=== PATIENT | female | born 1935 | race Caucasian/White ===

== ENCOUNTER → 2019-07-20 09:51 | Outpatient (CLI) | payer MEDICARE, OTHER, SELFPAY | PROVIDERS: Family Provider Internal Medicine; PCP Family Medicine; Referring Provider Family Medicine; Visit Provider Family Medicine | DX: S21.101A Unspecified open wound of right front wall of thorax without penetration into thoracic cavity, initial encounter (principal); S21.201A Unspecified open wound of right back wall of thorax without penetration into thoracic cavity, initial encounter; L08.9 Local infection of the skin and subcutaneous tissue, unspecified | CPT/HCPCS: 87070; 87075; 87205; 97597; 99214 ==

== ENCOUNTER → 2019-07-22 11:55 | Outpatient (CLI) | payer MEDICARE, OTHER, SELFPAY | PROVIDERS: Family Provider Internal Medicine; PCP Family Medicine; Referring Provider Orthopaedic Surgery; Visit Provider Family Medicine | DX: S31.000A Unspecified open wound of lower back and pelvis without penetration into retroperitoneum, initial encounter (principal); S21.301A Unspecified open wound of right front wall of thorax with penetration into thoracic cavity, initial encounter | CPT/HCPCS: 99214 ==

== ENCOUNTER → 2019-07-24 08:32 | Outpatient (CLI) | payer MEDICARE, OTHER, SELFPAY | PROVIDERS: Family Provider Internal Medicine; PCP Family Medicine; Visit Provider Family Medicine | DX: S31.000A Unspecified open wound of lower back and pelvis without penetration into retroperitoneum, initial encounter (principal); S21.90XA Unspecified open wound of unspecified part of thorax, initial encounter | CPT/HCPCS: 97605 ==

== ENCOUNTER → 2019-07-27 10:35 | Outpatient (CLI) | payer MEDICARE, OTHER, SELFPAY | PROVIDERS: Family Provider Internal Medicine; PCP Family Medicine; Referring Provider Family Medicine; Visit Provider Family Medicine | DX: S21.101A Unspecified open wound of right front wall of thorax without penetration into thoracic cavity, initial encounter (principal); I10 Essential (primary) hypertension | CPT/HCPCS: 97597 ==

== ENCOUNTER → 2019-07-29 12:45 | Outpatient (CLI) | payer MEDICARE, OTHER, SELFPAY | PROVIDERS: Family Provider Internal Medicine; PCP Family Medicine; Referring Provider Family Medicine; Visit Provider Family Medicine | DX: S31.000A Unspecified open wound of lower back and pelvis without penetration into retroperitoneum, initial encounter (principal); S21.301A Unspecified open wound of right front wall of thorax with penetration into thoracic cavity, initial encounter | CPT/HCPCS: 99214 ==

== ENCOUNTER → 2019-07-31 10:33 | Outpatient (CLI) | payer MEDICARE, OTHER, SELFPAY | PROVIDERS: Family Provider Internal Medicine; PCP Family Medicine; Referring Provider Family Medicine; Visit Provider Family Medicine | DX: S31.000A Unspecified open wound of lower back and pelvis without penetration into retroperitoneum, initial encounter (principal); S21.301A Unspecified open wound of right front wall of thorax with penetration into thoracic cavity, initial encounter | CPT/HCPCS: 99214 ==

== ENCOUNTER → 2019-08-03 11:07 | Outpatient (CLI) | payer MEDICARE, OTHER, SELFPAY | PROVIDERS: Family Provider Internal Medicine; PCP Family Medicine; Visit Provider Family Medicine | DX: S31.000A Unspecified open wound of lower back and pelvis without penetration into retroperitoneum, initial encounter (principal); S21.301A Unspecified open wound of right front wall of thorax with penetration into thoracic cavity, initial encounter | CPT/HCPCS: 99213 ==

== ENCOUNTER → 2019-08-05 10:58 | Outpatient (CLI) | payer MEDICARE, OTHER, SELFPAY | PROVIDERS: Family Provider Internal Medicine; PCP Family Medicine; Visit Provider Family Medicine | DX: S21.101A Unspecified open wound of right front wall of thorax without penetration into thoracic cavity, initial encounter (principal); S21.201A Unspecified open wound of right back wall of thorax without penetration into thoracic cavity, initial encounter | CPT/HCPCS: 99213; 99214 ==

== ENCOUNTER → 2019-08-07 10:18 | Outpatient (CLI) | payer MEDICARE, OTHER, SELFPAY | PROVIDERS: Family Provider Internal Medicine; PCP Family Medicine; Visit Provider Family Medicine | DX: S31.000A Unspecified open wound of lower back and pelvis without penetration into retroperitoneum, initial encounter (principal); S21.301A Unspecified open wound of right front wall of thorax with penetration into thoracic cavity, initial encounter | CPT/HCPCS: 99213 ==

== ENCOUNTER → 2019-08-10 13:58 | Outpatient (CLI) | payer MEDICARE, OTHER, SELFPAY | PROVIDERS: Family Provider Internal Medicine; PCP Family Medicine; Visit Provider Family Medicine | DX: S21.101A Unspecified open wound of right front wall of thorax without penetration into thoracic cavity, initial encounter (principal); S21.201A Unspecified open wound of right back wall of thorax without penetration into thoracic cavity, initial encounter | CPT/HCPCS: 99213 ==

== ENCOUNTER → 2019-08-13 09:57 | Outpatient (CLI) | payer MEDICARE, OTHER, SELFPAY | PROVIDERS: Family Provider Internal Medicine; PCP Family Medicine; Referring Provider Family Medicine; Visit Provider Family Medicine | DX: S31.000A Unspecified open wound of lower back and pelvis without penetration into retroperitoneum, initial encounter (principal); S21.301A Unspecified open wound of right front wall of thorax with penetration into thoracic cavity, initial encounter | CPT/HCPCS: 99212 ==

== ENCOUNTER → 2019-08-17 09:53 | Outpatient (CLI) | payer MEDICARE, OTHER, SELFPAY | PROVIDERS: Family Provider Internal Medicine; PCP Family Medicine; Referring Provider Family Medicine; Visit Provider Family Medicine | DX: S31.000A Unspecified open wound of lower back and pelvis without penetration into retroperitoneum, initial encounter (principal); S21.301A Unspecified open wound of right front wall of thorax with penetration into thoracic cavity, initial encounter | CPT/HCPCS: 99213 ==

== ENCOUNTER → 2019-08-20 09:30 | Outpatient (CLI) | payer MEDICARE, OTHER, SELFPAY | PROVIDERS: Family Provider Internal Medicine; PCP Family Medicine; Referring Provider Family Medicine; Visit Provider Family Medicine | DX: S31.000A Unspecified open wound of lower back and pelvis without penetration into retroperitoneum, initial encounter (principal); S21.301A Unspecified open wound of right front wall of thorax with penetration into thoracic cavity, initial encounter | CPT/HCPCS: 99213 ==

== ENCOUNTER → 2019-08-24 09:48 | Outpatient (CLI) | payer MEDICARE, OTHER, SELFPAY | PROVIDERS: Family Provider Internal Medicine; PCP Family Medicine; Visit Provider Family Medicine | DX: S31.000A Unspecified open wound of lower back and pelvis without penetration into retroperitoneum, initial encounter (principal); S21.301A Unspecified open wound of right front wall of thorax with penetration into thoracic cavity, initial encounter | CPT/HCPCS: 99212 ==

== ENCOUNTER → 2019-08-27 09:56 | Outpatient (CLI) | payer MEDICARE, OTHER, SELFPAY | PROVIDERS: Family Provider Internal Medicine; PCP Family Medicine; Visit Provider Family Medicine | DX: S21.101A Unspecified open wound of right front wall of thorax without penetration into thoracic cavity, initial encounter (principal); S21.201A Unspecified open wound of right back wall of thorax without penetration into thoracic cavity, initial encounter | CPT/HCPCS: 17250 ==

== ENCOUNTER 2019-12-09 09:55 | Emergency (ER) | payer MEDICARE, OTHER, SELFPAY ==
[2019-12-09] VITALS (10 sets, daily range): BP systolic 138–170; BP diastolic 66–97; PULSE 70–76; RESP 14–16; TEMP 36.8; O2SAT 96–98
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
[2019-12-09 13:51] LABS: Add Manual Diff / Slide Review NO; Basophils Absolute Auto 100 /uL (0-100); Basophils Percent Auto 0.7 % (0-2); Eosinophils Absolute Auto 400 /uL (0-450); Eosinophils Percent Auto 1.7 % (2-4); Hematocrit 34.3 % (36-46); Hemoglobin 11.2 g/dL (12.0-16.0); Lymphocytes Absolute Auto 2800 /uL (1100-4500); Lymphocytes Percent Auto 13.6 % (25-40); Mean Corpuscular HGB Conc 32.6 % (30-36); Mean Corpuscular Hemoglobin 29.7 PG (26-34); Mean Corpuscular Volume 91.2 fL (80-100); Monocytes Absolute Auto 1300 /uL (0-900); Monocytes Percent Auto 6.4 % (3-14); Neutrophils Absolute Auto 15800 /uL (1500-7000); Neutrophils Percent Auto 77.6 % (50-75); Platelet Count 453 X10^3/uL (150-400); Red Blood Cell Count 3.76 X10^6/uL (4.0-5.2); Red Cell Distribution Width 17.3 % (11.6-14.8); White Blood Cell Count 20.4 X10^3/uL (4.5-11.0)
[2019-12-09 14:06] LABS: Alanine Aminotransferase 61 IU/L (<35); Albumin 3.2 g/dL (3.5-5.0); Albumin Globulin Ratio 0.8 (1.0-2.8); Alkaline Phosphatase 127 U/L (38-126); Aspartate Aminotransferase 103 IU/L (14-36); Bilirubin Total 0.6 mg/dL (0.2-1.3); Blood Urea Nitrogen 21 mg/dL (7-17); Calcium 9.2 mg/dL (8.4-10.2); Carbon Dioxide 33 mmol/L (22-32); Chloride 102 mmol/L (98-107); Estimated Glomerular Filt Rate > 60.0 mL/min (>60); Globulin 3.8 g/dL (1.7-4.1); Glucose 100 mg/dL (80-110); HEMOLYSIS < 15 (0-50); Potassium 4.3 mmol/L (3.4-5.1); Sodium 137 mmol/L (137-145)
[2019-12-09 14:08] LABS: Erythrocyte Sedimentation Rate 83 MM/HR (0-20)
[2019-12-09 14:16] LABS: C-Reactive Protein Quant 16.4 mg/dL (<1.0)
[2019-12-09 14:19] LABS: Procalcitonin 0.06 ng/mL (<0.5)
--- NOTE | 2019-12-09 15:35 | PC.NURSE ---
report given to Ale at [facility].
== END 2019-12-09 15:28 | disposition home or self-care (01) ==
PROVIDERS: Emergency Provider Emergency Medicine; Family Provider Internal Medicine; PCP Family Medicine
DX: Z98.890 Other specified postprocedural states (principal); Z89.512 Acquired absence of left leg below knee; I48.91 Unspecified atrial fibrillation; Z79.01 Long term (current) use of anticoagulants
CPT/HCPCS: 80053; 83605; 84145; 85025; 85651; 86140; 87040; 99283; 99284

== ENCOUNTER → 2019-12-13 09:38 | Outpatient (ROUT) | payer MEDICARE, OTHER, SELFPAY ==
[2019-12-15 09:36] LABS: COVID19 Sendout Not Detected (Not Detected)
== END ==
PROVIDERS: Family Provider Internal Medicine; PCP Family Medicine; Visit Provider Internal Medicine
CPT/HCPCS: 87635

== ENCOUNTER 2019-12-13 17:29 | Emergency (ER) | payer MEDICARE, OTHER, SELFPAY ==
[2019-12-13] VITALS (7 sets, daily range): BP systolic 126–151; BP diastolic 60–79; PULSE 80; RESP 16–22; TEMP 37.3–37.4; O2SAT 94–96
[2019-12-13 18:18] LABS: Add Manual Diff / Slide Review NO; Basophils Absolute Auto 100 /uL (0-100); Basophils Percent Auto 0.5 % (0-2); Eosinophils Absolute Auto 1200 /uL (0-450); Eosinophils Percent Auto 5.9 % (2-4); Hematocrit 32.6 % (36-46); Hemoglobin 10.8 g/dL (12.0-16.0); Lymphocytes Absolute Auto 3400 /uL (1100-4500); Lymphocytes Percent Auto 16.8 % (25-40); Mean Corpuscular HGB Conc 33.1 % (30-36); Mean Corpuscular Hemoglobin 29.7 PG (26-34); Mean Corpuscular Volume 89.5 fL (80-100); Monocytes Absolute Auto 1100 /uL (0-900); Monocytes Percent Auto 5.7 % (3-14); Neutrophils Absolute Auto 14200 /uL (1500-7000); Neutrophils Percent Auto 71.1 % (50-75); Platelet Count 599 X10^3/uL (150-400); Red Blood Cell Count 3.64 X10^6/uL (4.0-5.2); Red Cell Distribution Width 18.2 % (11.6-14.8); White Blood Cell Count 19.9 X10^3/uL (4.5-11.0)
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
[2019-12-13 18:33] LABS: INR 1.7 (0.9-1.3); Prothrombin Time 19.9 SECONDS (10.1-12.7)
[2019-12-13 18:36] LABS: Lactate (Lactic Acid) 1.4 mmol/L (0.7-2.1); PTT Partial Thromboplastin Tim 35 SECONDS (26.4-36.2)
[2019-12-13 18:39] LABS: Creatine Kinase 457 U/L (30-135)
--- NOTE | 2019-12-13 18:40 | PC.NURSE ---
right leg amputee is blackened with serous sang. drainage. skin is sloughing. left leg amputee skin is sloughing, serous sang. drainage. arrived to Er with vaseline gauze wrapped around b/l stumps.
[2019-12-13 18:42] LABS: Alanine Aminotransferase 59 IU/L (<35); Albumin 3.1 g/dL (3.5-5.0); Albumin Globulin Ratio 0.9 (1.0-2.8); Alkaline Phosphatase 118 U/L (38-126); Aspartate Aminotransferase 76 IU/L (14-36); BUN Creatinine Ratio 59.1 (6-22); Bilirubin Total 0.4 mg/dL (0.2-1.3); Blood Urea Nitrogen 26 mg/dL (7-17); Calcium 9.2 mg/dL (8.4-10.2); Carbon Dioxide 28 mmol/L (22-32); Chloride 101 mmol/L (98-107); Erythrocyte Sedimentation Rate 84 MM/HR (0-20); Estimated Glomerular Filt Rate > 60.0 mL/min (>60); Globulin 3.4 g/dL (1.7-4.1); Glucose 91 mg/dL (80-110); HEMOLYSIS 28 (0-50); Lipase 223 U/L (23-300); Potassium 4.6 mmol/L (3.4-5.1); Sodium 135 mmol/L (137-145); Total Protein 6.5 g/dL (6.3-8.2)
[2019-12-13 18:55] LABS: Procalcitonin 0.06 ng/mL (<0.5)
--- NOTE | 2019-12-13 20:23 | PC.NURSE ---
b/l wound care. roxanne are intact, skin is sloughing . new vaseline guaze applied, nonadherant dressing , abdominal pad and kerlix applied. skin is sloughing right is worse than the left. right leg area of necrotic is worse than the left. serous drainage from the incision sites.
--- NOTE | 2019-12-13 20:59 | PC.NURSE ---
while turning pt for the bedpan, I noticed about a stage 2 , approx. 2 1/2 inch pressure sore on the back of her leg, hamstring area. pt states that she had no idea that was there. she reports that she thinks that it may be from her wheelchair and sitting there for long periods.
== END 2019-12-13 21:03 | disposition short-term general hospital (02) ==
PROVIDERS: Emergency Medicine; Emergency Provider Emergency Medicine; Family Provider Internal Medicine; PCP Family Medicine
DX: L76.82 Other postprocedural complications of skin and subcutaneous tissue (principal); I96 Gangrene, not elsewhere classified; Z89.9 Acquired absence of limb, unspecified; Z11.59 Encounter for screening for other viral diseases
CPT/HCPCS: 36415; 80053; 82550; 83605; 83690; 84145; 85025; 85610; 85651; 85730; 86140; 87040; 87635; 99283; 99284